=== PATIENT | female | born 1975 | race Caucasian/White ===

== ENCOUNTER 2016-09-03 10:55 | Emergency (ER) | payer OTHER ==
[~2016-09-03] VITALS: Ht 162.6 cm; Wt 63.5 kg
[2016-09-03 10:55] VITALS: BP 177/118
[~2016-09-03 10:55] MED LIST: NEURONTIN600 MG PO; PHENERGAN 25 MG25 M1 PO; ZOFRAN ODT4 MG PO
[2016-09-03] MEDS ORDERED: NORCO 5-325 TA1 EACH PO (11:29)
== END 2016-09-03 12:15 | disposition home or self-care (01) ==
LOC: ER 10:55
DX: M53.3 Sacrococcygeal disorders, not elsewhere classified (principal); F17.210 Nicotine dependence, cigarettes, uncomplicated; W00.2XXA Other fall from one level to another due to ice and snow, initial encounter; Y93.01 Activity, walking, marching and hiking; Y92.9 Unspecified place or not applicable; Y99.9 Unspecified external cause status

== ENCOUNTER 2019-06-06 11:35 | Emergency (ER) | payer BC, OTHER ==
[~2019-06-06] VITALS: Ht 162.6 cm; Wt 54.4 kg
[~2019-06-06 11:35] MED LIST changes: +NORCO 5-325 TA1 EACH PO
[2019-06-06] MEDS ORDERED: CLONAZEPAM 0.50.5 M1 PO (12:06)
[2019-06-06] MEDS ORDERED: EFFEXOR XR150 MG PO (12:06)
[2019-06-06] MEDS ORDERED: PROTONIX 20 MG20 MG PO (12:08)
[2019-06-06] MEDS ORDERED: PHENERGAN 25 MG25 MG PO (12:09)
[2019-06-06 12:18] LABS: URINE BILIRUBIN NEGATIVE (Negative); URINE BLOOD NEGATIVE (Negative); URINE CLARITY CLEAR; URINE COLOR YELLOW; URINE GLUCOSE-RANDOM* NEGATIVE (Negative); URINE KETONES NEGATIVE (Negative); URINE LEUKOCYTES-REFLEX TRACE (Negative); URINE NITRITE-REFLEX NEGATIVE (Negative); URINE PROTEIN (DIPSTICK) NEGATIVE (Negative); URINE SPECIFIC GRAVITY <= 1.005 (1.005-1.035); URINE UROBILINOGEN 0.2 E.U./dl (0.2-1.0)
[2019-06-06 12:27] LABS: AMP/METHAMP Negative (Negative); BARBITURATES Negative (Negative); BENZODIAZEPINES Negative (Negative); COCAINE Negative (Negative); METHADONE Negative (Negative); OPIATES Negative (Negative); PCP Negative (Negative)
[2019-06-06 12:41] LABS: HEMATOCRIT 39.9 % (37.0-47.0); HEMOGLOBIN 13.4 gm/dL (12.0-15.0); MCH 31.7 pg (26.0-34.0); MCHC 33.7 g/dL (28.0-37.0); PLATELET COUNT 305 thou/uL (150-400); RBC 4.24 mil/uL (4.20-5.00); RDW 12.3 % (10.5-14.5); WBC 20.1 thou/uL (4.0-11.0)
[2019-06-06 12:55] LABS: CALCIUM 9.2 mg/dL (8.5-10.1); CREATININE 0.5 mg/dL (0.6-1.0); POTASSIUM 3.7 mmol/L (3.5-5.1)
[2019-06-06] MEDS ORDERED: HYDROXYZINE HCL50 MG PO (13:18)
[2019-06-06 13:26] LABS: ABSOLUTE NEUTROPHILS 19.1 thou/uL (1.4-8.2); PLATELET ESTIMATE NORMAL
[2019-06-06 15:46] LABS: CSF CLARITY CLEAR; CSF COLOR COLORLESS; VOLUME 5 ml
[2019-06-06 15:48] LABS: CSF GLUCOSE 68 mg/dL (40-70); CSF PROTEIN 32 mg/dL (15-45)
[2019-06-06 15:56] LABS: CSF RBC 183 /mm3; CSF WBC 5 /mm3 (0-10)
[2019-06-06 17:00] LABS: ABSOLUTE NEUTROPHILS 12.2 thou/uL (1.4-8.2); BASOPHILS 0.6 % (0.0-2.0); EOSINOPHILS 0.4 % (0.0-3.0); HEMATOCRIT 36.3 % (37.0-47.0); HEMOGLOBIN 12.4 gm/dL (12.0-15.0); LYMPHOCYTES 14.2 % (24.0-44.0); MCH 32.1 pg (26.0-34.0); MCHC 34.2 g/dL (28.0-37.0); MCV 93.9 fL (80.0-100.0); PLATELET COUNT 300 thou/uL (150-400); POLYS 81.8 % (36.0-66.0); RBC 3.87 mil/uL (4.20-5.00); RDW 12.4 % (10.5-14.5)
[2019-06-07] MEDS ORDERED: NORCO 5-325 TA1 EAC1 PO (15:47)
[2019-06-07] MEDS ORDERED: KLONOPIN0.5 MG PO (15:47)
[2019-06-07 18:07] VITALS: BP 137/87
== END 2019-06-07 18:08 | disposition home or self-care (01) ==
LOC: ER 11:35
PROVIDERS: Emergency Medicine
DX: R45.851 Suicidal ideations (principal); E87.1 Hypo-osmolality and hyponatremia; F41.9 Anxiety disorder, unspecified; R51 Headache; F19.939 Other psychoactive substance use, unspecified with withdrawal, unspecified; F32.9 Major depressive disorder, single episode, unspecified; F17.210 Nicotine dependence, cigarettes, uncomplicated; Z90.49 Acquired absence of other specified parts of digestive tract; Z90.710 Acquired absence of both cervix and uterus

== ENCOUNTER 2020-05-30 12:06 | Inpatient (IN) | payer OTHER ==
[~2020-05-30] VITALS: Ht 162.6 cm; Wt 64.0 kg
[~2020-05-30 12:06] MED LIST changes: +CLONAZEPAM 0.50.5 M1 PO; +EFFEXOR XR150 MG PO; +HYDROXYZINE HCL50 MG PO; +KLONOPIN0.5 MG PO; +NORCO 5-325 TA1 EAC1 PO; +PHENERGAN 25 MG25 MG PO; +PROTONIX 20 MG20 MG PO
[2020-05-30 12:16] VITALS: BP 142/110
[2020-05-30 12:57] LABS: ABSOLUTE NEUTROPHILS 9.3 thou/uL (1.4-8.2); BASOPHILS 0.5 % (0.0-2.0); EOSINOPHILS 0.7 % (0.0-3.0); HEMATOCRIT 44.7 % (37.0-47.0); HEMOGLOBIN 15.2 gm/dL (12.0-15.0); LYMPHOCYTES 8.6 % (24.0-44.0); MCH 32.5 pg (26.0-34.0); MCHC 34.1 g/dL (28.0-37.0); MCV 95.5 fL (80.0-100.0); MONOCYTES 3.9 % (1.0-8.0); PLATELET COUNT 323 thou/uL (150-400); POLYS 86.3 % (36.0-66.0); RBC 4.68 mil/uL (4.20-5.00); RDW 12.7 % (10.5-14.5); WBC 10.8 thou/uL (4.0-11.0)
[2020-05-30 13:06] LABS: CALCIUM 9.9 mg/dL (8.5-10.1); CREATININE 0.7 mg/dL (0.6-1.0); POTASSIUM 3.9 mmol/L (3.5-5.1)
[2020-05-30 13:12] LABS: ALBUMIN 4.9 g/dL (3.4-5.0); TOTAL BILIRUBIN 0.4 mg/dL (0.2-1.0); TOTAL PROTEIN 8.3 g/dL (6.4-8.2)
[2020-05-30 14:56] LABS: URINE BILIRUBIN NEGATIVE (Negative); URINE BLOOD TRACE (Negative); URINE CLARITY CLEAR; URINE COLOR YELLOW; URINE GLUCOSE-RANDOM* NEGATIVE (Negative); URINE KETONES 1+ (Negative); URINE LEUKOCYTES-REFLEX NEGATIVE (Negative); URINE NITRITE-REFLEX NEGATIVE (Negative); URINE PROTEIN (DIPSTICK) NEGATIVE (Negative); URINE SPECIFIC GRAVITY 1.015 (1.005-1.035); URINE UROBILINOGEN 0.2 E.U./dl (0.2-1.0)
--- NOTE | 2020-05-30 14:59 | EKG ---
[facility] [place] [address] ELECTROCARDIOGRAM REPORT Name: FABIENNE CARTER Room #: REG [facility]#: [id number] Admission: 05/30/20 Attend Phys: Discharge: Date of : 77 Report #: [id number] THIS REPORT FOR: cc: CONRADO Aguero family physician/PCP CONRADO - More family physician/PCP Sander Link MD [facility] THIS REPORT FOR: //name// [facility] ED Test Date: 2020-05-30 Test Time: 13:39:42 Pat Name: FABIENNE CARTER Department: Room: Gender: F Dice Table Person: darling : 1975 Requested By: Alivia Brock Order Number: [id number] MD: Sander Link Measurements Intervals [place] Rate: 74 P: 68 GA: 142 QRS: 63 QRSD: 107 T: 56 QT: 437 QTc: 485 Interpretive Statements Sinus rhythm Abnormal R-wave progression, early transition Baseline wander in lead(s) V1 Compared to ECG 08/14/2016 20:17:30 No significant changes Electronically Signed On 05-30-2020 14:59:28 CDT by Sander Link [email or web address] <ELECTRONICALLY SIGNED> By: Sander Likn MD, FACC 05/30/20 1459 1339 [id number] Sander Link MD, FAC /EPI
[2020-05-30 15:06] LABS: AMP/METHAMP Negative (Negative); BARBITURATES Negative (Negative); BENZODIAZEPINES Negative (Negative); COCAINE Negative (Negative); METHADONE Negative (Negative); OPIATES POSITIVE (Negative); PCP Negative (Negative)
[2020-05-30 18:16] VITALS: BP 117/75
[2020-05-30 18:28] VITALS: BP 131/85
[2020-05-30 19:24] VITALS: BP 124/84
--- NOTE | 2020-05-30 23:03 | NUR ---
1900 ADMITTED FROM ER PER WHEELCHAIR. UP WITH STEADY GAIT. PAIN MEDICATION AND NAUSEA MEDS GIVEN NEEDED. ADMISSION PROCESS COMPLETED. ORIENTED TO ROOM AND FLOOR POLICIES. PLACED IN ENHANCED PRECAUTIONS PER ORDERS. REVIEWED CARE PLAN AND GOALS. NPO UNTIL SEEN BY IN AM. CONSULT CALLED. CONTINUE TO ASSES CLOSELY. SLEEPING AT PRESENT TIME.
--- NOTE | 2020-05-31 02:56 | NUR ---
MAINTAIN ENHANCED PRECAUTIONS. SLEEPING WITHOUT PRESENT COMPLAINTS OF NAUSEA OR PAIN. WORKING ON GOALS AND PLAN OF CARE FOR NOC. REMAINS NPO AWAITING IN AM. NOT PROGRESSING TOWARDS DISCHARGE GOALS AT THIS TIME. CONTINUE TO ASSES.
[2020-05-31 05:22] VITALS: BP 117/79
[2020-05-31 06:32] LABS: ABSOLUTE NEUTROPHILS 4.2 thou/uL (1.4-8.2); BASOPHILS 0.2 % (0.0-2.0); EOSINOPHILS 1.3 % (0.0-3.0); HEMATOCRIT 37.5 % (37.0-47.0); LYMPHOCYTES 32.8 % (24.0-44.0); MCH 32.7 pg (26.0-34.0); MCHC 33.8 g/dL (28.0-37.0); MCV 96.8 fL (80.0-100.0); MONOCYTES 7.1 % (1.0-8.0); POLYS 58.6 % (36.0-66.0); RBC 3.88 mil/uL (4.20-5.00); WBC 7.2 thou/uL (4.0-11.0)
[2020-05-31 06:43] LABS: CALCIUM 8.6 mg/dL (8.5-10.1); CREATININE 0.6 mg/dL (0.6-1.0); HEMOGLOBIN 12.7 gm/dL (12.0-15.0); MAGNESIUM 1.8 mg/dL (1.8-2.4); PLATELET COUNT 230 thou/uL (150-400); POTASSIUM 3.2 mmol/L (3.5-5.1)
[2020-05-31 07:29] VITALS: BP 128/87
--- NOTE | 2020-05-31 14:17 | NUR ---
INITIAL ASSESSMENT: Received consult. JOSEFINA reviewed chart and spoke with nursing and attending physician. Pt was admitted from home due to abdominal pain/colitis. Pt placed in Enhanced Isolation to d/o COVID-19. Pt's test was negative. Enhanced Isolation precautions have been discontinued. Pt is afebrile and not requiring O2. Pt is on IV abx. Surgery consulted. JOSEFINA placed call to pt's room. No answer. Per chart, pt is alert/orientated x 4. Pt lives at home. Has insurance through her employer. SW to follow up with pt at a later time. SW is following to assist as needed with discharge planning.
[2020-05-31 16:08] VITALS: BP 154/101
--- NOTE | 2020-05-31 18:00 | NUR ---
ASSUMED PATIENT CARE AT 0700. A/O X4. UP Ad shawna. c/o RLQ abd pain with nausea. afebrile. covid pcr negative. waitting for surgen. solwly towards to poc.
[2020-05-31 19:16] VITALS: BP 155/105
[2020-05-31] MEDS ORDERED: DIPHENHIST50 MG PO (22:19)
--- NOTE | 2020-06-01 03:05 | NUR ---
Patient making slow progress towards outcome goals. Abdominal pain fairly controlled with Hydrocodone. Has nausea with clearliquids but no vomiting. Medicated with Zofran. IVfluids infusing. Up adlib to bathroom without difficulty. Inremittent sleep after Benadryl. Afebrile.
[2020-06-01 04:21] VITALS: BP 143/97
[2020-06-01 05:10] LABS: CALCIUM 8.9 mg/dL (8.5-10.1); CREATININE 0.7 mg/dL (0.6-1.0); POTASSIUM 3.4 mmol/L (3.5-5.1)
[2020-06-01 05:30] LABS: HEMATOCRIT 37.1 % (37.0-47.0); HEMOGLOBIN 12.6 gm/dL (12.0-15.0); MCH 32.7 pg (26.0-34.0); MCV 96.3 fL (80.0-100.0); RBC 3.85 mil/uL (4.20-5.00); RDW 13.1 % (10.5-14.5); WBC 5.8 thou/uL (4.0-11.0)
[2020-06-01 07:10] VITALS: BP 148/97
--- NOTE | 2020-06-01 14:12 | NUR ---
JOSEFINA reviewed chart and spoke with nursing and attending physician. Enhanced Isolation have been discontinued. Pt is on IV abx. Surgery evaluated pt and no procedures are indicated at this time. Pt's diet is being advanced. Possible discharge home later today or tomorrow. JOSEFINA placed call into pt's room multiple times today. No answer. SW left voice message on pt's cell phone ([phone]). Per chart, pt is independent with ADLs. Pt has insurance. No discharge needs identified at this time. JOSEFINA is following to assist as needed with discharge planning.
[2020-06-01 15:06] VITALS: BP 144/108
--- NOTE | 2020-06-01 16:54 | NUR ---
ASSUMED CARE OF PT AT SHIFT CHANGE. ASSESSMENT CHARTED. MEDS GIVEN PER OCT. C/O ABDOMINAL PAIN TREATED WITH PO MEDS WITH PARTIAL RELIEF. NAUSEA CONTINUES, TREATED WITH ZOFRAN. PLAN FOR EGD/COLONOSCOPY IN AM. BOWEL PREP TO START THIS AFTERNOON. PT CONTINUES TO VOICE CONCERN REGARDING APPENDIX. WILL CONTINUE TO MONITOR AND FOLLOW POC.
[2020-06-01 19:07] VITALS: BP 141/107
--- NOTE | 2020-06-01 21:54 | NUR ---
TRANSFERED TO THE UNIT AT APPROXIMATELY 2130. PT IS A/O X4 AND IS UP AD FANTA. PT HAS COMPLETED BOWEL PREP. C/O PAIN AND NAUSEA. PRIOR NURSE ADMINISTERED PRN PAIN AND NAUSEA MEDICATION AT APPROXIMATELY 2100. WILL BE NPO AT MIDNIGHT AWAITING PROCEDURE IN THE AM. AT THIS TIME, PT IS CURRENTLY LYING IN HER BED AND APPEARS TO BE WATCHING TV. CALL LIGHT IS WITHIN REACH. WILL CONTINUE TO MONITOR.
[2020-06-01 22:04] VITALS: BP 148/104
[2020-06-02 00:10] VITALS: BP 135/91
--- NOTE | 2020-06-02 02:47 | NUR ---
PT AOX4. PT REPORTS 7/10 CRAMPING PAIN IN ABDOMEN, NOTED TO BE TENDER TO TOUCH. PT DENIES SOB. PT RECEIVING PRN PO NORCO BID WITH PRN PO APAP QID AVAILABLE. PT AMBULATES TO BATHROOM INDEPENDENTLY. PT TOLERATING PO INTAKE OF FLUIDS AND CLEAR LIQUID DIET. PT REPORTS NAUSEA WITHOUT EMESIS. PT RECEIVING PRN IV ZOFRAN Q4HR. PT TRANSFERRED WITH ALL BELONGINGS TO AT 2133.
[2020-06-02 05:49] LABS: BASOPHILS 0.4 % (0.0-2.0); EOSINOPHILS 3.1 % (0.0-3.0); HEMATOCRIT 38.4 % (37.0-47.0); LYMPHOCYTES 33.9 % (24.0-44.0); MCH 32.3 pg (26.0-34.0); MCHC 33.9 g/dL (28.0-37.0); MCV 95.4 fL (80.0-100.0); MONOCYTES 8.1 % (1.0-8.0); PLATELET COUNT 209 thou/uL (150-400); POLYS 54.5 % (36.0-66.0); RBC 4.02 mil/uL (4.20-5.00); RDW 12.7 % (10.5-14.5); WBC 5.5 thou/uL (4.0-11.0)
[2020-06-02 06:12] LABS: ALBUMIN 3.8 g/dL (3.4-5.0); CREATININE 0.7 mg/dL (0.6-1.0); MAGNESIUM 1.7 mg/dL (1.8-2.4); PHOSPHORUS 3.5 mg/dL (2.5-4.9); POTASSIUM 3.3 mmol/L (3.5-5.1); TOTAL BILIRUBIN 0.4 mg/dL (0.2-1.0); TOTAL PROTEIN 6.6 g/dL (6.4-8.2)
[2020-06-02 07:40] VITALS: BP 136/86
[2020-06-02 10:20] VITALS: BP 129/72
[2020-06-02 10:55] VITALS: BP 133/74
[2020-06-02] MEDS ORDERED: BENTYL 10 MG CA10 M1 PO (13:44)
[2020-06-02] MEDS ORDERED: PROTONIX 20 MG20 M1 PO (13:45)
[2020-06-02] MEDS ORDERED: NICOTINE1 EAC2 TRANSDERM (13:45)
[2020-06-02] MEDS ORDERED: COLACE 100 MG100 MG PO (13:48)
[2020-06-02 13:59] VITALS: BP 136/86
--- NOTE | 2020-06-02 14:32 | NUR ---
Received awake on bed. Due medications given as prescribed, able to swallow meds w/o difficulty. A+Ox4. On room air. Vital signs stable. On MS, not on telemetry; no complains and signs of chest pain, crushing sensation and heaviness. On nothing per orem-pt informed and aware. For EGD/Colonoscopy today- a/w call from GI re: time of procedure; report given to GI nurse, brought down via wheelchair. Tolerated procedure well, Gasto wrote recommmendations, informed Dr Anderson to read Gastro notes. Continent of bowel and bladder, able to go to the toilet independently. With NS at 50cc/hr, infusing well at R FA- on IV antibiotics as well. No skin issues noted. Pt seen and examined by Dr Anderson- discharge orders made. Discharge instructions, follow up schedule given and instructed. Discharge forms signed as well. One time 40meq KCL given as prescribed prior to discharge. IV discontinued. Health teaching given re: gastro follow up and repeat procedure.
--- NOTE | 2020-06-06 10:08 | PATH ---
[facility] [place] [address] PATHOLOGY RPT PROCEDURE Name: FABIENNE CARTER Room #: 456-P [facility] IN M.R.#: [id number] Admission: 05/30/20 Date of : 77 Discharge: 06/02/20 Report #: [id number] Path Case #: [id number] [facility] Accession Number: [id number] . 01 Material submitted: . PART A: duodenum - DUODENAL RULE OUT CELIAC PART B: gastrointestinal site - ANTRUM PART C: esophagus - DISTAL ESOPHAGUS RULE OUT EOSINOPHILIC ESOPHAGITIS. Modifiers: distal PART D: esophagus - MID ESOPHAGUS RULE OUT EOSINOPHILIC ESOPHAGITIS PART E: colon - RANDOM COLON RULE OUT MICROSCOPIC COLITIS . 01 Clinical history: . ABDOMINAL PAIN, NAUSEA, VOMITING, COLITIS . 02 Diagnosis: A. Small bowel, "duodenum", endoscopic biopsy: - Duodenal mucosa without significant pathologic alteration. . B. 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 - Negative for active inflammation, intestinal metaplasia, dysplasia, and malignancy. - Negative for Helicobacter pylori. . C. Esophagus, "distal", endoscopic biopsy: - Esophageal squamous and gastric cardia mucosa with features of reflux esophagitis. - Negative for significant eosinophils. - Negative for intestinal metaplasia, dysplasia, and malignancy. . D. Esophagus, "mid", endoscopic biopsy: - Esophageal squamous mucosa with reactive hyperplasia. - Negative for significant eosinophils. - Negative for dysplasia and malignancy. . E. Large bowel, "random colon", endoscopic biopsy: - Large bowel mucosa with focal thickening of the subepithelial collagen band and rare intra-epithelial lymphocytes within surface and crypt epithelium. - Negative for active inflammation, granulomatous inflammation, dysplasia and malignancy. - Please see comment. (SUMAYAK:freeman; 06/05/2020) [facility] 06/06/2020 0957 Local . [address] [address] PATHOLOGY RPT PROCEDURE Name: FABIENNE CARTER Room #: 456-P [facility] IN M.R.#: [id number] Admission: 05/30/20 Date of : 77 Discharge: 06/02/20 Report #: [id number] Path Case #: [id number] Comment: The clinical question of microscopic colitis is noted. The biopsies from the colon (specimen E) show a focal areas where the sub-epithelial collagen band is thickened, and one area where the collagen extends down into into the lamina propria. A robust intra-epithelial lyphocyte population is not evident, but there are scattered lymphocytes within crypts. The overall pattern is not diagnostic of collagenous colitis, but could representn early and evolving disease. The differnential diagnosis also includes, medication related injury (NSAIDS), and resolving colitis. Please correlate clinically. . . . 02 Electronically signed: . Christine Mary MD, Pathologist NPI- [id number] . 01 Gross description: . A. The specimen is received in formalin, labeled "Fabienne Carter, duodenum, R/O celiac". Received are two segments of pale crockett soft tissue ranging in size from 0.4 to 0.7 cm in maximum dimensions. The specimen is submitted entirely in cassette A1. . B. The specimen is received in formalin, labeled "Fabienne Carter, antrum, R/O H. pylori". Received are two segments of pale crockett soft tissue ranging in size from 0.4 to 0.5 cm in maximum dimensions. The specimen is submitted entirely in cassette B1. . C. The specimen is received in formalin, labeled "Fabienne Carter, distal esophagus, R/O EOE". Received are two segments of pale crockett soft tissue ranging in size from 0.2 to 0.5 cm in maximum dimensions. The specimen is submitted entirely in cassette C1. . D. The specimen is received in formalin, labeled "Fabienne Carter, mid esophagus, R/O EOE". Received are two segments of pale crockett soft tissue ranging in size from 0.3 to 0.4 cm in maximum dimensions. The specimen is submitted entirely in cassette D1. . E. The specimen is received in formalin, labeled "Fabienne Carter, random colon biopsy". Received are two segments of pale crockett soft tissue measuring 0.4 cm each in maximum dimensions. The specimen is submitted entirely in cassette E1. (CAA; 06/04/2020) QAC/QAC 06/04/2020 1521 Local . 02 Microscopic: . Immunohistochemical stain results (properly-controlled): . [facility] [address] [place] [address] PATHOLOGY RPT PROCEDURE Name: FABIENNE CARTER Room #: 456-P DIS IN M.R.#: [id number] Admission: 05/30/20 Date of : 77 Discharge: 06/02/20 Report #: [id number] Path Case #: [id number] Helicobacter pylori (block B1): Negative for organisms. . (MLK:mml; 06/05/2020) . 02 Pathologist provided ICD-10: R10.9, R11.2, K52.9 . 02 CPT . 972040, 172384, 097745, 023388, 856972, Q50079 Specimen Comment: A courtesy copy of this report has been sent to [phone] Specimen Comment: Report sent to Performed at: [address], [place] [id number] MD Surinder Joseph MD Phone: [phone] Performed at: [address] [id number] MD Yuliya Dickinson MD Phone: [phone]
== END 2020-06-02 15:10 | disposition home or self-care (01) | DRG 392 ==
LOC: ER 12:06 → EROBS 16:47 → 3W 16:47 → 4W 06-01 21:30
PROVIDERS: Internal Medicine; Nurse Practitioner; Physician Assistant; ADMIT Hospitalist; ATTEND Hospitalist
PROC: 0DBE8ZX Excision of Large Intestine, Via Natural or Artificial Opening Endoscopic, Diagnostic (ICD-10-PCS; principal; 2020-06-02)
PROC: 0DB38ZX Excision of Lower Esophagus, Via Natural or Artificial Opening Endoscopic, Diagnostic (ICD-10-PCS; principal; 2020-06-02)
PROC: 0DB68ZX Excision of Stomach, Via Natural or Artificial Opening Endoscopic, Diagnostic (ICD-10-PCS; principal; 2020-06-02)
PROC: 0DB98ZX Excision of Duodenum, Via Natural or Artificial Opening Endoscopic, Diagnostic (ICD-10-PCS; principal; 2020-06-02)
DX: K52.9 Noninfective gastroenteritis and colitis, unspecified (principal); R65.10 Systemic inflammatory response syndrome (SIRS) of non-infectious origin without acute organ dysfunction; K20.90 Esophagitis, unspecified without bleeding; K57.30 Diverticulosis of large intestine without perforation or abscess without bleeding; E87.6 Hypokalemia; F17.210 Nicotine dependence, cigarettes, uncomplicated; K21.9 Gastro-esophageal reflux disease without esophagitis; R13.10 Dysphagia, unspecified; R63.4 Abnormal weight loss; K64.8 Other hemorrhoids; F12.20 Cannabis dependence, uncomplicated; Z20.828 Contact with and (suspected) exposure to other viral communicable diseases; Z90.49 Acquired absence of other specified parts of digestive tract; Z90.710 Acquired absence of both cervix and uterus; Z68.24 Body mass index [BMI] 24.0-24.9, adult; Z79.899 Other long term (current) drug therapy
CPT/HCPCS: 10047; 10080; 62110; 62900; 70005